=== PATIENT | male | born 1990 | race Caucasian/White ===

== ENCOUNTER 2023-11-19 17:54 | Emergency (ER) | payer BC, SELFPAY ==
[2023-11-19 18:00] VITALS: BP 140/89
--- NOTE | 2023-11-19 19:11 | ED.GENMED ---
History of Present Illness
General
Chief Complaint: Exposure-Chemical
Time Seen by Provider: 11/19/23 19:05
Travel History
Have you had any contact with someone who has COVID-19?: No
Do you have any symptoms of coronavirus? Fever > 100 degrees, chills, cough, shortness of breath, sore throat, loss of taste or smell, muscle aches, or headache?: No
History of Present Illness
History of Present Illness:
33-year-old male presents emergency department via EMS due to eye and facial burning, he was trying to clean pain off of his face and used a rag containing xylol paint thinner. On arrival nursing staff promptly irrigated him with normal saline and
tested ocular pH which was 7.0, on my evaluation the patient denies any complaint
Past History
Past History
ED Past Medical History: None
Social History
Living: with family
Review of Systems
Review of Systems
Allergies reviewed?: Yes
All Other Systems: ROS reviewed and negative except as documented in HPI and ROS
Phy Exam
Physical Exam
Physical Exam:
GEN: Well appearing, NAD, WDWN
HEENT: Oral mucosa moist, no scleral icterus. No scleral injection bilaterally, normal ocular pH bilaterally. No skin rashes around the eyes
Cardiac: Regular rate
Lung: No respiratory distress, no tachypnea
MSK: No gross deformity or injuries
Skin: Good color, no pallor or jaundice, no rashes
Neuro: AO x3, moves all extremities freely
Psych: Calm, cooperative
Course
Vital Signs
Initial and Last Documented VS:
Initial Vital Signs
Temp Pulse Resp BP Pulse Ox
98.0 F 87 16 140/89 100
11/19/23 18:00 11/19/23 18:00 11/19/23 18:00 11/19/23 18:00 11/19/23 18:00
Last Documented Vital Signs
Temp Pulse Resp BP Pulse Ox
98.0 F 87 16 140/89 100
11/19/23 18:00 11/19/23 18:00 11/19/23 18:00 11/19/23 18:00 11/19/23 18:00
MDM/Problems Addressed
MDM/Problems Addressed:
Patient is asymptomatic on my evaluation. I reviewed the MSDS sheets of this chemical given that the patient was irrigated copiously and shows no further symptoms there is no indication for prolonged monitoring.
*Critical Care Note
Total Time (30-74mins, 75-104mins- exclusive of procedures): Not Applicable
ED Attending Note
-
Portions of this chart may have been created with voice recognition software.� Occasional wrong word or��sound alike� substitutions may have occurred due to the inherent limitations of voice recognition software.
Discharge Plan
Departure
Patient Disposition: Home (Routine Discharge)
Date of Disposition: 11/19/23
Time of Disposition: 19:11
Patient with high blood pressure during this ER visit?: No
Discharge Problem:
Chemical dermatitis
Instructions: Chemical Exposure to the Skin (DC)
Prescriptions:
No Action
No Current Medications
0
Activity Restrictions/Additional Instructions:
There is no concern for delayed injury to the skin or eyes
If a rash develops to the face tomorrow you could require topical steroids
Return if symptoms reoccur
Interventions
Interventions:
*Risk Screen - Suicide Last Done: 11/19/23 18:00
*General Assessment Last Done: 11/19/23 18:00
*Neglect/Abuse Screening Last Done: 11/19/23 18:00
*ED COVID-19 Vaccine History Last Done: 11/19/23 18:00
*Nursing Disposition Last Done: 11/19/23 19:33
ED-EENT Assessment Last Done: 11/19/23 18:00
ED- Pulmonary Assessment Last Done: 11/19/23 18:00
ED-Skin Assessment Last Done: 11/19/23 18:01
Discharge Date and Time
Discharge Date/Time: 11/19/23 19:34
Print Language: MACEDONIAN
== END 2023-11-19 19:34 | disposition home or self-care (01) ==
LOC: EMR 17:54
PROVIDERS: EMERGENCY PHYSICIAN Emergency Medicine
DX: L25.3 Unspecified contact dermatitis due to other chemical products (principal)
CPT/HCPCS: 99282